=== PATIENT | female | born 1960 | race Caucasian/White ===

== ENCOUNTER 2017-07-25 11:59 | Day surgery (SDC) | payer OTHER ==
[2017-07-25] MEDS ORDERED: LR 1,000 ML IV ONE (12:37)
[2017-07-25] MEDS ORDERED: CLINDAMYCIN 900 MG/DEXTROSE 50 ML IV ONE (12:44)
--- NOTE | 2017-07-25 12:45 | PDHPUP ---
History & Physical Update H&P update statement: This history and physical update is based on an assessment of the patient which was completed after admission or registration (within 24 hours), but prior to the surgery/procedure. H&P update: H&P reviewed & patient examined, no change in patient's condition since H&P completed
[2017-07-25] MEDS ORDERED: BUPIVACAINE 0.5% 30 ML SDV ONE (13:13)
[2017-07-25] MEDS ORDERED: MIDAZOLAM 2 MG/2 ML VIAL ONE (13:45)
[2017-07-25] MEDS ORDERED: PROPOFOL 200 MG/20 ML VIAL ONE ×3 (13:49→14:24)
[2017-07-25] MEDS ORDERED: fentaNYL 100 MCG/2 ML INJ ONE ×2 (13:49→15:05)
[2017-07-25] MEDS ORDERED: MIDAZOLAM 2 MG/2 ML VIAL IVP ONE (13:50)
--- NOTE | 2017-07-25 13:52 | PDANEPAE ---
ANE Past Medical History - Pulmonary History Hx Oxygen in Use at Home: No Hx Sleep Apnea: No - Chronic Pain History Chronic Pain: No ANE Review of Systems Review of Systems: ANE Patient History - Allergies Allergies/Adverse Reactions: amoxicillin Allergy (Unverified 07/22/17 13:02) - Home Medications Home Medications: Advil 07/25/17 [Last Taken 07/24/17] Tylenol 07/25/17 [Last Taken 07/24/17] oxyCODONE/APAP 5/325 07/25/17 [Last Taken 07/24/17] - NPO status NPO Since - Liquids (Date): 07/25/17 NPO Since - Liquids (Time): 01:00 NPO Since - Solids (Date): 07/24/17 NPO Since - Solids (Time): 19:00 - Anes Hx Anes Hx: no prior problems ANE Labs/Vital Signs - Vital Signs Blood Pressure: 104/82 Heart Rate: 86 Respiratory Rate: 16 O2 Sat (%): 96 Height: 157.48 cm Weight: 64.41 kg ANE Physical Exam - Airway Neck exam: FROM Mallampati Score: Class 2 Mouth exam: normal dental/mouth exam - Pulmonary Pulmonary: no respiratory distress, no rales or rhonchi, clear to auscultation - Cardiovascular Cardiovascular: regular rate and rhythym, no murmur, rub, or gallop - ASA Status ASA Status: III ANE Anesthesia Plan Anesthesia Plan: GA with mask
[2017-07-25] MEDS ORDERED: LR 500 ML IV PRN (13:54)
[2017-07-25] MEDS ORDERED: ONDANSETRON 4 MG/2 ML VIAL IVP PRN (13:54)
[2017-07-25] MEDS ORDERED: PROMETHAZINE HCL 25 MG/ML INJ IVP PRN (13:54)
[2017-07-25] MEDS ORDERED: DEXAMETHASONE 4 MG/ML VIAL IVP PRN (13:54)
[2017-07-25] MEDS ORDERED: NALOXONE HCL 0.4 MG/ML INJ IVP PRN (13:54)
[2017-07-25] MEDS ORDERED: ACETAMINOPHEN 500 MG TAB PO PRN (13:54)
[2017-07-25] MEDS ORDERED: oxyCODONE IR 5 MG TAB PO PRN (13:54)
[2017-07-25] MEDS: fentaNYL 100 MCG/2 ML INJ IVP PRN ×2 (15:06→15:27)
--- NOTE | 2017-07-25 15:20 | POSTANESTH ---
Post Anesthetic Evaluation Cardiovascular Status: Normal, Stable, Similar to Pre-Op Cond Respiratory Status: Normal, Stable, Similar to Pre-op Cond. Level of Consciousness/Mental Status: Can Participate in Eval, Alert and Oriented Pain Control: Adequate, Prn Tx Ordered Nausea/Vomiting Control: Adequate, Prn Tx Ordered Complications Possibly Related to Anesthesia: None Noted
--- NOTE | 2017-07-25 15:38 | POSTOPPROG ---
Post Op Note Date of Operation: 07/25/17 Surgeon: Maciel Green Zoology Teacher: Rayshawn Johnson MD [facility] Anesthesiologist: Angelina Anesthesia: LMA Pre-op Diagnosis: pharyngeal cancer Post-op Diagnosis: same Indication: enteral access Procedure: Percutaneous Endoscopic Gastrostomy Tube Placement Findings: 20Fr PEG tube Inf/Abcess present in the surg proc area at time of surgery?: No EBL: Minimal
--- NOTE | 2017-07-25 15:39 | POSTOPPROG ---
Post Op Note Date of Operation: 07/25/17 Surgeon: Maciel Green Anesthesiologist: Lupe Anesthesia: IV Sedation Pre-op Diagnosis: Pharyngeal Cancer Post-op Diagnosis: same Procedure: US guided L IJ Power Port Placement with Intra-op Fluoro Findings: successful placement, flushed and withdrew well Inf/Abcess present in the surg proc area at time of surgery?: No EBL: Minimal
[2017-07-25 16:21] VITALS: BP 118/87
--- NOTE | 2017-07-25 16:24 | GOP ---
[f rep st] OPERATIVE REPORT DATE OF OPERATION: 07/25/2017 SURGEON: Maciel Green MD CO-SURGEON: Rayshawn Johnson MD. ANESTHESIA: General endotracheal. ANESTHESIOLOGIST: Dr. Andrade. PREOPERATIVE DIAGNOSIS: Pharyngeal cancer. POSTOPERATIVE DIAGNOSIS: Pharyngeal cancer. PROCEDURE PERFORMED: Percutaneous endoscopic gastrostomy tube placement. FINDINGS: SPECIMENS: None. ESTIMATED BLOOD LOSS: 2 cc DESCRIPTION OF PROCEDURE: The patient was greeted in the preoperative suite. Once again, risks, benefits, and alternatives were discussed. Consent was signed. She was then brought back to the operative suite, placed on the OR table in supine position. After all anesthesia machines including SCDs were on and functioning, a World [employer] time-out was performed. After successful sedation of the patient, her abdomen was prepped and draped in typical sterile fashion. The endoscope was then passed per Dr. Johnson. Please see his separate dictation for his portion of the procedure. Once the stomach was successfully transilluminated through the abdominal wall I successfully anesthetized the anterior abdominal wall in the left upper quadrant. Once this was done, I passed my needle and subsequently the guidewire. The guidewire was then grasped by the endoscope which was attached to the 20-Indonesian gastrostomy tube. This was then brought back through the patient's oropharyngeal airway through the esophagus into the stomach where the flange was allowed to lay in the appropriate position with minimal tension approximately 3 cm at the skin. It was trimmed and dressed appropriately. Postplacement endoscopic visualization showed that the tube was in the appropriate position. The patient was then maintained anesthetized for subsequent procedure. DRAINS: 20-Indonesian gastrostomy tube. /[id number]/MODL MTDD
--- NOTE | 2017-07-25 16:29 | GOP ---
[f rep st] OPERATIVE REPORT DATE OF OPERATION: 07/25/2017 SURGEON: Maciel Green MD TANKROOM WORKER: None. ANESTHESIA: IV sedation. ANESTHESIOLOGIST: Provided by Dr. Andrade. PREOPERATIVE DIAGNOSIS: Pharyngeal cancer. POSTOPERATIVE DIAGNOSIS: Pharyngeal cancer. PROCEDURE PERFORMED: Ultrasound-guided left internal jugular PowerPort placement with intraoperative fluoroscopy. FINDINGS: Successful cannulation and placement of a left internal jugular PowerPort placement, which both flushed and extracted appropriately. SPECIMENS: None. ESTIMATED BLOOD LOSS: 5 cc. DESCRIPTION OF PROCEDURE: The patient had already been anesthetized from a prior procedure. Prior t o prepping and draping, a World Health Organization time-out was performed after which the patient's left neck and chest was prepped and draped in typical sterile fashion. I commenced the procedure by identifying the left internal jugular vein, with the ultrasound I successfully cannulated and threade d my guidewire. Fluoroscopic guidance showed that the guidewire was successfully in the superior luz a cava. After this was done, I successfully placed my peel-away sheath and extracted the guidewire. I then selected a place approximately 2 fingerbreadths beneath the patient's left clavicle and made a 1 inch incision through which I carried it down to the subcutaneous tissue and made a pocket for th e port inferiorly. After the pocket was made, the catheter itself was tunneled from the pocket to th e stick site and successfully placed the peel-away sheath using intraoperative fluoroscopic guidance sized it to the atrial caval junction appropriately. It was then trimmed and placed to the port prop er. The port was then placed within the cavity. A final fluoroscopic picture showed that it was in appropriate position without any undue kinks. It was then attached to the underlying subcutaneous ch est wall with an interrupted Prolene stitch. Subcutaneous tissue was reapproximated with interrupted 3-0 Vicryl over which a 4-0 Monocryl was used for a subcuticular layer. Dermabond was placed. Prio r to this I had both flushed and withdrew the catheter. It was heparin locked with 5 cc heparin sali ne. The patient was then extubated in the operative suite and taken to the PACU in satisfactory cond ition. DRAINS: None. COUNTS: All counts were reported as correct x2. /[id number]/MODL
--- NOTE | 2017-07-26 04:55 | GOP ---
[f rep st] OPERATIVE REPORT DATE OF OPERATION: 07/25/2017 SURGEON: Rayshawn Johnson MD ANESTHESIA: General. PREOPERATIVE DIAGNOSIS: Oropharyngeal carcinoma. POSTOPERATIVE DIAGNOSIS: Oropharyngeal carcinoma. PROCEDURE PERFORMED: Upper endoscopy. FINDINGS: INDICATIONS: This is a 56-year-old female with oropharyngeal carcinoma. She is undergoing a port pl acement with PEG tube placement at this time with co-surgeon, Maciel Green MD. DESCRIPTION OF PROCEDURE: After monitored anesthesia was started, the endoscope was passed through t he oropharynx down to the 2nd portion the duodenum. The duodenum appeared normal. The pylorus appea red normal without gastritis changes. The remaining stomach appeared normal. Scope retroflexion lisseth wed a small hiatal hernia. The esophagus appeared normal from the Z-line up to the oropharynx. Stom ach was insufflated. A light reflex was easily identified. A needle was passed by Dr. Peter santiago rectly into the stomach. The guidewire was snared and brought via the oropharynx. This was connecte d to the Pull gastrostomy tube. The wire was retracted via the stomach without difficulty. The scop e was reinserted showing satisfactory bumper placement without evidence of bleeding and smooth mobili ty. The scope was then withdrawn uneventfully after evacuating air. Care of the case was turned to Dr. Geren for port placement. /[id number]/MODL
== END 2017-07-25 17:33 | disposition home or self-care (01) ==
LOC: FSGY 11:59
PROVIDERS: ATTEND Surgery
PROC: 0DH64UZ Insertion of Feeding Device into Stomach, Percutaneous Endoscopic Approach (ICD-10-PCS; principal; 2017-07-25 13:30)
PROC: 0JH60XZ Insertion of Tunneled Vascular Access Device into Chest Subcutaneous Tissue and Fascia, Open Approach (ICD-10-PCS; principal; 2017-07-25 13:30)
PROC: 02HV33Z Insertion of Infusion Device into Superior Vena Cava, Percutaneous Approach (ICD-10-PCS; principal; 2017-07-25 13:30)
DX: C10.9 Malignant neoplasm of oropharynx, unspecified (principal); C14.0 Malignant neoplasm of pharynx, unspecified; Z90.710 Acquired absence of both cervix and uterus; Z88.0 Allergy status to penicillin
CPT/HCPCS: 36561; 43246; 71045; 76001; B4087; C1788; J1642; J2250; J2704; J3010

== ENCOUNTER → 2018-04-06 | Outpatient (CLI) | payer OTHER | LOC: FIMAGING 10:36 | DX: R13.10 Dysphagia, unspecified (principal); Z85.20 Personal history of malignant neoplasm of unspecified respiratory organ | CPT/HCPCS: 92611-GN ==

== ENCOUNTER → 2018-08-24 | Outpatient (CLI) | payer OTHER | LOC: EMCIMAGING 15:11 ==